=== PATIENT | male | born 1955 | race Caucasian/White ===

== ENCOUNTER 2022-04-30 13:42 | Inpatient (IN) | payer MEDICARE ==
[2022-04-30] VITALS (20 sets, daily range): BP systolic 65–140; BP diastolic 23–103
[~2022-04-30] VITALS: Ht 182.9 cm; Wt 81.6 kg
[2022-04-30] MEDS ORDERED: FAMOTIDINE 20MG VIAL IV STA (13:46)
[2022-04-30 14:10] LABS: BASOPHILS % (AUTO) 0.9 % (0.0-5.0); EOSINOPHILS % (AUTO) 1.6 % (0.0-8.0); HEMATOCRIT 35.5 % (42-54); LYMPHOCYTES % (AUTO) 16.7 % (21.0-51.0); MEAN CORPUSCULAR HEMOGLOBIN 31.1 pg (27.0-33.0); MEAN CORPUSCULAR VOLUME 94.4 fL (79-99); MONOCYTES % (AUTO) 11.7 % (3.0-13.0); NEUTROPHILS % (AUTO) 68.8 % (40.0-77.0); PLATELET COUNT (AUTO) 248 K/uL (130-400); RED BLOOD CELL COUNT(AUTO) 3.76 MIL/uL (4.50-6.20); RED CELL DISTRIBUTION WIDTH 13.3 % (11.0-15.5)
[2022-04-30 14:21] LABS: CREATININE 1.3 mg/dL (0.5-1.5); POTASSIUM 3.8 mmol/L (3.5-5.1)
[2022-04-30 14:23] LABS: INR 0.95 (0.85-1.15); PROTHROMBIN TIME 10.4 SEC (9.6-11.6)
[2022-04-30 14:26] LABS: ALBUMIN 3.4 g/dL (3.5-5.0); TOTAL PROTEIN, SERUM 8.2 g/dL (6.0-8.3)
[2022-04-30] MEDS ORDERED: ONDANSETRON 4MG INJ IVP PRN (15:00)
[2022-04-30] MEDS ORDERED: ACETAMINOPHEN 325 MG TAB PO PRN (15:00)
[2022-04-30] MEDS ORDERED: HYDRALAZINE 20MG/ML VIAL IV PRN (15:30)
[2022-04-30] MEDS ORDERED: HEPARIN 25,000 UNITS/250ML D5W 250 ML IV SCH (15:30)
[2022-04-30] MEDS: METOPROLOL SUCCINATE 50 MG TAB.SR.24H PO SCH (15:39)
[2022-04-30] MEDS ORDERED: CEFAZOLIN SODIUM 2 GM VIAL IVP PRN (16:30)
[2022-04-30] MEDS: DEXAMETHASONE SOD PHOSPHATE 4 MG/ML 1ML VIAL IV SCH ×2 (16:53→20:20)
[2022-04-30] MEDS: LACTATED RINGERS 1000ML 1,000 ML IV SCH (16:54)
[2022-04-30] MEDS ORDERED: TRIA15CR45 TP (18:44)
[2022-04-30] MEDS ORDERED: APIX5TAB PO (18:44)
[2022-04-30] MEDS ORDERED: DIGO125T71 PO (18:44)
[2022-04-30] MEDS ORDERED: TORS20TA4 PO (18:44)
[2022-04-30] MEDS ORDERED: LOVA20TA3 PO (18:44)
[2022-04-30] MEDS ORDERED: METO-391 PO (18:44)
[2022-04-30] MEDS ORDERED: BETA45CR3 TP (18:44)
[2022-04-30] MEDS ORDERED: LACTULOSE 20 GM/30 ML UDCUP PO ONE (20:00)
[2022-04-30] MEDS ORDERED: LACTULOSE 20 GM/30 ML UDCUP ONE (20:11)
[2022-04-30] MEDS ORDERED: ZOLPIDEM TARTRATE 5 MG TAB ONE (20:12)
[2022-04-30] MEDS: ZOLPIDEM TARTRATE 5 MG TAB PO PRN (20:20)
[2022-04-30] MEDS ORDERED: NICOTINE 21 MG/ 24 HR PATCH TD ONE (20:30)
[2022-05-01] VITALS (55 sets, daily range): BP systolic 55–169; BP diastolic 23–102
[2022-05-01 04:27] LABS: BASOPHILS % (AUTO) 0.2 % (0.0-5.0); EOSINOPHILS % (AUTO) 0.2 % (0.0-8.0); HEMATOCRIT 33.8 % (42-54); LYMPHOCYTES % (AUTO) 10.5 % (21.0-51.0); MEAN CORPUSCULAR HEMOGLOBIN 31.3 pg (27.0-33.0); MEAN CORPUSCULAR HGB CONC 33.1 g/dL (32.0-36.0); MEAN CORPUSCULAR VOLUME 94.4 fL (79-99); MONOCYTES % (AUTO) 2.5 % (3.0-13.0); NEUTROPHILS % (AUTO) 86.3 % (40.0-77.0); PLATELET COUNT (AUTO) 248 K/uL (130-400); RED BLOOD CELL COUNT(AUTO) 3.58 MIL/uL (4.50-6.20); RED CELL DISTRIBUTION WIDTH 13.2 % (11.0-15.5); WHITE BLOOD COUNT (AUTO) 5.9 K/uL (4.8-10.8)
[2022-05-01 04:44] LABS: ALBUMIN 2.9 g/dL (3.5-5.0); MAGNESIUM 2.2 mg/dL (1.80-2.40); TOTAL PROTEIN, SERUM 7.5 g/dL (6.0-8.3)
[2022-05-01] MEDS: DEXAMETHASONE SOD PHOSPHATE 4 MG/ML 1ML VIAL IV SCH ×4 (05:29→20:35)
[2022-05-01] MEDS ORDERED: SUCCINYLCHOLINE CHLORIDE 20 MG/ML 10 ML VIAL ONE (06:38)
[2022-05-01] MEDS ORDERED: LIDOCAINE PF 100MG/5ML (2%) SYRINGE 5ML ONE (06:38)
[2022-05-01] MEDS ORDERED: PROPOFOL 10 MG/ML 20ML VIAL IV ONE (06:39)
[2022-05-01] MEDS ORDERED: DEXAMETHASONE SOD PHOSPHATE 10MG/ML 1ML VIAL ONE (06:40)
[2022-05-01] MEDS ORDERED: GLYCOPYRROLATE 1 MG/5 ML SYRINGE ONE (06:40)
[2022-05-01] MEDS ORDERED: ONDANSETRON 4MG INJ ONE (06:41)
[2022-05-01] MEDS ORDERED: MIDAZOLAM HCL 1 MG/ML 2ML VIAL ONE ×2 (06:41→11:21)
[2022-05-01] MEDS ORDERED: ROCURONIUM 10MG/1ML SYR 10 MG/ML ML ONE (06:41)
[2022-05-01] MEDS ORDERED: NEOSTIGMINE 5MG/5ML SYR IV ONE (06:41)
[2022-05-01] MEDS ORDERED: FENTANYL CITRATE PF 50 MCG/1 ML 2ML VIAL ONE ×4 (06:42→14:25)
[2022-05-01] MEDS ORDERED: DILTIAZEM 25MG INJ IVP SCH (08:00)
[2022-05-01] MEDS ORDERED: ALBUMIN (HUMAN) 5% 250 ML IV ONE (08:19)
[2022-05-01] MEDS ORDERED: DILTIAZEM 25MG INJ IVP ONE (08:19)
[2022-05-01] MEDS ORDERED: BUPIVACAINE/EPI/PF 0.5% 30ML VIAL IJ ONE ×2 (08:24→11:45)
[2022-05-01] MEDS ORDERED: CEFAZOLIN SODIUM 1 GM VIAL ONE ×2 (08:24→10:03)
[2022-05-01] MEDS ORDERED: THROMBIN-JMI 5000 UNIT/VIAL TP ONE (08:25)
[2022-05-01] MEDS: METOPROLOL SUCCINATE 50 MG TAB.SR.24H PO SCH (08:47)
[2022-05-01] MEDS: DIGOXIN 125 MCG TABLET PO SCH (08:47)
[2022-05-01] MEDS: ATORVASTATIN 20 MG TABLET PO SCH (08:47)
[2022-05-01] MEDS ORDERED: TORSEMIDE 20 MG TAB PO SCH ×2 (09:00→15:30)
[2022-05-01] MEDS ORDERED: FAMOTIDINE 20MG VIAL IV SCH (09:00)
[2022-05-01] MEDS ORDERED: METOPROLOL SUCCINATE 50 MG TAB.SR.24H PO SCH (09:00)
[2022-05-01] MEDS ORDERED: NICOTINE 21 MG/ 24 HR PATCH TD SCH (09:00)
[2022-05-01] MEDS ORDERED: VITAMIN B COMPLEX 1 CAPSULE PO SCH (09:00)
[2022-05-01] MEDS ORDERED: MANNITOL 20% 500ML BAG 500 ML IV ONE (09:10)
[2022-05-01] MEDS ORDERED: PROPOFOL 1000 MG/100 ML 100 ML IV ONE (09:17)
[2022-05-01] MEDS: LACTATED RINGERS 1000ML 1,000 ML IV SCH (10:34)
[2022-05-01] MEDS ORDERED: CEFAZOLIN SODIUM 2 GM VIAL IVPB ONE (11:15)
[2022-05-01] MEDS ORDERED: CEFAZOLIN SODIUM 1 GM VIAL IRRIG ONE (11:45)
[2022-05-01] MEDS ORDERED: DEXAMETHASONE SOD PHOSPHATE 4 MG/ML 1ML VIAL ONE (12:07)
[2022-05-01] MEDS ORDERED: PHENYLEPHRINE HCL 10 MG/ML 1ML VIAL IV ONE (13:30)
[2022-05-01] MEDS ORDERED: 0.9%NACL 10ML VIAL IVP PRN (15:30)
[2022-05-01] MEDS ORDERED: HYDROCODONE/ACETAMINOPHEN 5/325 MG TAB PO PRN (15:30)
[2022-05-01] MEDS ORDERED: MORPHINE 2 MG SYG IVP PRN (15:30)
[2022-05-01] MEDS ORDERED: LACTATED RINGERS 1000ML 1,000 ML IV SCH (15:30)
[2022-05-01] MEDS ORDERED: DIGOXIN 125 MCG TABLET PO PRN (15:30)
[2022-05-01] MEDS ORDERED: PROMETHAZINE HCL 25 MG/ML 1ML AMPULE IM PRN (15:30)
[2022-05-01] MEDS: DEXAMETHASONE SOD PHOSPHATE 4 MG/ML 1ML VIAL IVP SCH ×2 (16:08→21:33)
[2022-05-01] MEDS ORDERED: TRIAMCINOLONE ACETONIDE 0.1% CREAM 15GM TP SCH (21:00)
[2022-05-01] MEDS ORDERED: BETAMETHASONE VALERATE 45 GM CREAM.GM. TP SCH (21:00)
[2022-05-01] MEDS: ZOLPIDEM TARTRATE 5 MG TAB PO PRN (21:33)
[2022-05-02] VITALS (11 sets, daily range): BP systolic 99–141; BP diastolic 62–92
[2022-05-02] MEDS: DEXAMETHASONE SOD PHOSPHATE 4 MG/ML 1ML VIAL IV SCH (00:16)
[2022-05-02] MEDS: DEXAMETHASONE SOD PHOSPHATE 4 MG/ML 1ML VIAL IVP SCH (03:49)
[2022-05-02 04:19] LABS: BASOPHILS % (AUTO) 0.1 % (0.0-5.0); HEMATOCRIT 34.7 % (42-54); LYMPHOCYTES % (AUTO) 4.5 % (21.0-51.0); MEAN CORPUSCULAR HEMOGLOBIN 31.4 pg (27.0-33.0); MEAN CORPUSCULAR HGB CONC 33.4 g/dL (32.0-36.0); MEAN CORPUSCULAR VOLUME 93.8 fL (79-99); NEUTROPHILS % (AUTO) 88.9 % (40.0-77.0); PLATELET COUNT (AUTO) 264 K/uL (130-400); RED CELL DISTRIBUTION WIDTH 13.2 % (11.0-15.5); WHITE BLOOD COUNT (AUTO) 17.8 K/uL (4.8-10.8)
[2022-05-02 04:43] LABS: ALBUMIN 3.1 g/dL (3.5-5.0); CREATININE 1.3 mg/dL (0.5-1.5); MAGNESIUM 2.2 mg/dL (1.80-2.40); POTASSIUM 3.7 mmol/L (3.5-5.1); TOTAL PROTEIN, SERUM 7.7 g/dL (6.0-8.3)
[2022-05-02] MEDS: ATORVASTATIN 20 MG TABLET PO SCH (08:39)
[2022-05-02] MEDS: METOPROLOL SUCCINATE 50 MG TAB.SR.24H PO SCH (08:39)
[2022-05-02] MEDS: DIGOXIN 125 MCG TABLET PO SCH (08:40)
[2022-05-02] MEDS ORDERED: METOPROLOL SUCCINATE 50 MG TAB.SR.24H PO SCH (09:00)
[2022-05-02] MEDS ORDERED: NON-FORMULARY MEDICATION 1 EACH (Lovastatin 20 MG) PO SCH (09:00)
== END 2022-05-02 09:00 | disposition left against medical advice (07) | DRG 472 ==
LOC: EDH 13:42 → EDHIP 14:10 → 2BH 17:13
PROVIDERS: ADMIT Hospitalist; ATTEND Hospitalist
PROC: 0RB30ZZ Excision of Cervical Vertebral Disc, Open Approach (ICD-10-PCS; 2022-05-01)
PROC: 4A11X4G Monitoring of Peripheral Nervous Electrical Activity, Intraoperative, External Approach (ICD-10-PCS; 2022-05-01)
PROC: 0RG10J0 Fusion of Cervical Vertebral Joint with Synthetic Substitute, Anterior Approach, Anterior Column, Open Approach (ICD-10-PCS; principal; 2022-05-01 11:14)
DX: M48.02 Spinal stenosis, cervical region (principal); G99.2 Myelopathy in diseases classified elsewhere; I48.21 Permanent atrial fibrillation; E11.51 Type 2 diabetes mellitus with diabetic peripheral angiopathy without gangrene; Z20.822 Contact with and (suspected) exposure to COVID-19; I25.10 Atherosclerotic heart disease of native coronary artery without angina pectoris; F17.210 Nicotine dependence, cigarettes, uncomplicated; D64.9 Anemia, unspecified; I10 Essential (primary) hypertension; Z53.29 Procedure and treatment not carried out because of patient's decision for other reasons; Z79.01 Long term (current) use of anticoagulants; Z98.62 Peripheral vascular angioplasty status; Z86.73 Personal history of transient ischemic attack (TIA), and cerebral infarction without residual deficits; Z91.14 Patient's other noncompliance with medication regimen
CPT/HCPCS: 36415; 71045; 72020; 73562; 80053; 80162; 82550; 82948; 83735; 84484; 85025; 85610; 87635; 93005; A4344; C1713; G0378; J0330; J0690; J1100; J2001; J2250; J2370; J2405; J2704; J2710; J3010; J3490; J7030; J7120; P9045

== ENCOUNTER → 2022-06-03 | Outpatient (CLI) | payer MEDICARE ==
[~2022-06-03] MED LIST: APIX5TAB PO; BETA45CR3 TP; DIGO125T71 PO; LOVA20TA3 PO; METO-391 PO; TORS20TA4 PO; TRIA15CR45 TP
== END | disposition home or self-care (01) ==
LOC: RAH 10:22
PROVIDERS: ATTEND Neurological Surgery
DX: M47.812 Spondylosis without myelopathy or radiculopathy, cervical region (principal); M48.02 Spinal stenosis, cervical region; Z98.1 Arthrodesis status
CPT/HCPCS: 72040

== ENCOUNTER → 2023-10-09 | Outpatient (CLI) | payer MEDICARE | END | disposition home or self-care (01) | LOC: RAH 14:02 | PROVIDERS: ATTEND Orthopaedic Surgery | DX: M17.12 Unilateral primary osteoarthritis, left knee (principal); M16.12 Unilateral primary osteoarthritis, left hip; M85.88 Other specified disorders of bone density and structure, other site; M93.972 Osteochondropathy, unspecified, left ankle and foot; M19.072 Primary osteoarthritis, left ankle and foot; M77.32 Calcaneal spur, left foot | CPT/HCPCS: 73700 ==

== ENCOUNTER 2024-11-03 08:00 | Day surgery (SDC) | payer MEDICARE ==
[~2024-11-03] VITALS: Ht 182.9 cm; Wt 90.7 kg
[2024-11-03] VITALS (12 sets, daily range): BP systolic 104–170; BP diastolic 70–78; PULSE 66–76; RESP 15–18; TEMP 97.4–98
[~2024-11-03 08:00] MED LIST changes: -APIX5TAB PO; -BETA45CR3 TP; -DIGO125T71 PO; -METO-391 PO; -TRIA15CR45 TP
[2024-11-03] MEDS: 0.9%NACL 1000ML 1,000 ML IV ONE (08:38)
[2024-11-03] MEDS ORDERED: LIDOCAINE HCL 1% 20 ML VIAL ONE (11:08)
[2024-11-03] MEDS ORDERED: proPOFol 10 MG/ML 20ML VIAL IV ONE (11:08)
== END 2024-11-03 12:30 | disposition home or self-care (01) ==
LOC: ENDO 08:00 → DAH 08:00 → ENDO 12:30
PROVIDERS: ATTEND Internal Medicine Gastroenterology
DX: K59.00 Constipation, unspecified (principal); D12.3 Benign neoplasm of transverse colon; K63.5 Polyp of colon; K62.1 Rectal polyp; K64.0 First degree hemorrhoids; K57.30 Diverticulosis of large intestine without perforation or abscess without bleeding; I67.89 Other cerebrovascular disease; J44.9 Chronic obstructive pulmonary disease, unspecified; F17.210 Nicotine dependence, cigarettes, uncomplicated; I10 Essential (primary) hypertension; Z86.0100 Personal history of colon polyps, unspecified; Z79.899 Other long term (current) drug therapy; Z86.73 Personal history of transient ischemic attack (TIA), and cerebral infarction without residual deficits; Z98.890 Other specified postprocedural states; Z98.62 Peripheral vascular angioplasty status
CPT/HCPCS: 45380; 45385; J7030; J2704; A4620; A4215 ×2; A4223; A4222; A4221; A4663; A4606; J3490